=== PATIENT | female | born 1965 | race Caucasian/White ===

== ENCOUNTER 2017-07-07 02:21 | Emergency (ER) | payer BC ==
[2017-07-07] MEDS: ACETAMINOPHEN 325 MG TAB PO (03:46)
[2017-07-07] MEDS: IBUPROFEN 600 MG TAB PO (03:46)
[2017-07-07] MEDS: GUAIFENESIN/DM 5ML CUP PO (03:57)
== END 2017-07-07 04:42 | disposition home or self-care (01) ==
LOC: FTE 02:21
DX: J10.1 Influenza due to other identified influenza virus with other respiratory manifestations (principal); Z85.3 Personal history of malignant neoplasm of breast
CPT/HCPCS: 71045; 87400; 99284-25

== ENCOUNTER → 2017-07-18 | Outpatient (CLI) | payer BC | END | disposition home or self-care (01) | LOC: LAB 15:03 | DX: N39.0 Urinary tract infection, site not specified (principal) | CPT/HCPCS: 87086 ==

== ENCOUNTER → 2017-07-19 | Outpatient (CLI) | payer BC | END | disposition home or self-care (01) | LOC: U/S 12:18 | DX: N83.209 Unspecified ovarian cyst, unspecified side (principal); K80.20 Calculus of gallbladder without cholecystitis without obstruction | CPT/HCPCS: 76700; 76830; 76856 ==

== ENCOUNTER 2017-08-03 09:42 | Day surgery (SDC) | payer BC ==
[~2017-08-03 09:42] MED LIST: METOCLOPRAMIDE 10 MG INJ; METOPROLOL 5 MG INJ
[2017-08-03] MEDS: ROPIVACAINE 0.5 % 30 ML VIAL (11:49)
[2017-08-03] MEDS ORDERED: MIDAZOLAM 1 MG/ML 2 ML INJ (12:39)
[2017-08-03] MEDS: POLYMYXIN/BACITRACIN 1L IRRIG (12:40)
[2017-08-03] MEDS ORDERED: morphine 2 MG INJ IV (13:00)
[2017-08-03] MEDS ORDERED: PHENYLephrine (100 MCG/ML) 5ML SYG (13:38)
[2017-08-03] MEDS ORDERED: morphine 10 MG INJ (15:08)
[2017-08-03] MEDS ORDERED: ONDANSETRON 4 MG INJ (16:30)
[2017-08-03] MEDS ORDERED: METOCLOPRAMIDE 10 MG INJ (16:30)
[2017-08-03] MEDS: NEOMYC/POLYMYX/BACIT 30 GM OINT (16:32)
[2017-08-03] MEDS ORDERED: CEFAZOLIN 1 GM INJ (16:33)
[2017-08-03] MEDS ORDERED: ROCURONIUM 50 MG INJ (16:33)
[2017-08-03] MEDS ORDERED: PROPOFOL 20 ML (16:33)
[2017-08-03] MEDS ORDERED: LIDOCAINE 2% (SDV) 5 ML INJ (16:33)
[2017-08-03] MEDS ORDERED: FENTAnyl 50 MCG/ML VIAL IV (17:00)
[2017-08-03] MEDS ORDERED: HYDROmorphONE (0.2 MG/ML) 10ML SYG IV (17:00)
[2017-08-03] MEDS ORDERED: DIPHENHYDRAMINE 50 MG INJ IV (17:00)
[2017-08-03] MEDS ORDERED: MEPERIDINE 25 MG INJ IV (17:00)
[2017-08-03] MEDS ORDERED: LABETALOL HCL 20MG INJ IV (17:00)
[2017-08-03] MEDS: HYDROmorphONE (0.2 MG/ML) 10ML SYG IV ×2 (17:23→18:09)
[2017-08-03] MEDS: ONDANSETRON 4 MG INJ IV (17:28)
[2017-08-03] MEDS: HYDROCODONE/APAP (5/325) TAB PO (18:00)
== END 2017-08-03 20:08 | disposition home or self-care (01) ==
LOC: SDS 09:42
DX: M20.21 Hallux rigidus, right foot (principal); M20.11 Hallux valgus (acquired), right foot; M20.41 Other hammer toe(s) (acquired), right foot
CPT/HCPCS: 28285; 73630; 82306

== ENCOUNTER → 2018-01-11 | Outpatient (CLI) | payer BC ==
[2018-01-11 17:05] LABS: ADD MAN DIFF? NO
[2018-01-11 17:17] LABS: BASOPHILS % 0.3 % (0.0-2.0); EOSINOPHILS # 0.2 10^3/ul (0.0-0.5); EOSINOPHILS % 1.7 % (0.0-7.0); HEMATOCRIT 39.1 % (37.0-47.0); HEMOGLOBIN 12.6 g/dl (12.0-16.0); LYMPHOCYTES # 3.2 10^3/ul (0.8-2.9); LYMPHOCYTES % 32.5 % (15.0-51.0); MEAN CORPUSCULAR HEMOGLOBIN 28.1 pg (29.0-33.0); MEAN CORPUSCULAR HGB CONC 32.2 g/dl (32.0-37.0); MEAN CORPUSCULAR VOLUME 87.3 fl (82.0-101.0); MEAN PLATELET VOLUME 10.4 fl (7.4-10.4); MONOCYTE # 0.4 10^3/ul (0.3-0.9); MONOCYTES % 4.1 % (0.0-11.0); NEUTROPHIL # 6.1 10^3/ul (1.6-7.5); NEUTROPHILS % 61.2 % (39.0-77.0); PLATELET COUNT 244 10^3/UL (140-415); RED BLOOD COUNT 4.48 10^6/ul (4.20-5.40); RED CELL DISTRIBUTION WIDTH 13.9 % (11.5-14.5)
[2018-01-11 17:17] LABS: WHITE BLOOD COUNT 9.9 10^3/ul (4.8-10.8)
[2018-01-11 17:44] LABS: ANION GAP 11 (8-16); BLOOD UREA NITROGEN 13 mg/dl (7-20); CALCIUM 9.5 mg/dl (8.4-10.2); CARBON DIOXIDE 30 mmol/L (21-31); CHLORIDE 104 mmol/L (97-110); CREATININE 0.77 mg/dl (0.44-1.00); GLUCOSE 124 mg/dl (70-220); POTASSIUM 4.2 mmol/L (3.5-5.1); SODIUM 141 mmol/L (135-144)
[2018-01-11 17:51] LABS: INR 0.96; PROTIME 12.9 Sec (11.9-14.9)
[2018-01-11 17:52] LABS: PARTIAL THROMBOPLASTIN TIME 29.8 Sec (25.0-35.0)
== END | disposition home or self-care (01) ==
LOC: LAB 15:44
DX: J20.9 Acute bronchitis, unspecified (principal)
CPT/HCPCS: 71046; 80048; 85025; 85610; 85730; 93005

== ENCOUNTER 2018-01-19 05:27 | Day surgery (SDC) | payer BC ==
[2018-01-19] MEDS: LACTATED RINGER'S 1,000 ML IV (06:20)
[2018-01-19] MEDS ORDERED: BUPIVACAINE 0.25%/EPI (SDV) 30 ML INJ (06:53)
[2018-01-19] MEDS ORDERED: ROPIVACAINE 0.5 % 30 ML VIAL ×2 (06:53→07:59)
[2018-01-19] MEDS ORDERED: EPHEDrine SULFATE 50 MG/5 ML SYG (07:00)
[2018-01-19] MEDS ORDERED: PROPOFOL 20 ML (07:43)
[2018-01-19] MEDS ORDERED: LIDOCAINE 2% (SDV) 5 ML INJ (07:43)
[2018-01-19] MEDS ORDERED: MIDAZOLAM 1 MG/ML 2 ML INJ (07:44)
[2018-01-19] MEDS ORDERED: FENTAnyl 50 MCG/ML VIAL (07:44)
[2018-01-19] MEDS ORDERED: FAMOTIDINE 20 MG INJ (07:54)
[2018-01-19] MEDS ORDERED: ONDANSETRON 4 MG INJ (07:54)
[2018-01-19] MEDS ORDERED: DEXAMETHASONE 4 MG/ML 1 ML INJ (07:54)
[2018-01-19] MEDS ORDERED: CEFAZOLIN 1 GM INJ (07:58)
[2018-01-19] MEDS ORDERED: MEPERIDINE 25 MG INJ IV (08:30)
[2018-01-19] MEDS ORDERED: HYDROmorphONE 1 MG/5 ML IV SYRINGE IV ×2 (08:30)
[2018-01-19] MEDS ORDERED: ONDANSETRON 4 MG INJ IV (08:30)
[2018-01-19] MEDS ORDERED: FENTAnyl 50 MCG/ML VIAL IV ×3 (08:30)
[2018-01-19] MEDS ORDERED: DIPHENHYDRAMINE 50 MG INJ IV (08:30)
[2018-01-19] MEDS: NEOMYC/POLYMYX/BACIT 30 GM OINT (08:57)
[2018-01-19] MEDS: POLYMYXIN/BACITRACIN 1L IRRIG (08:57)
[2018-01-19] MEDS ORDERED: PHENYLephrine (100 MCG/ML) 5ML SYG (11:21)
[2018-01-19] MEDS: PROCHLORPERAZINE 10 MG INJ IV (12:16)
[2018-01-19] MEDS: HYDROmorphONE 1 MG/5 ML IV SYRINGE IV ×2 (12:19→13:12)
[2018-01-19] MEDS ORDERED: morphine 2 MG INJ IV (12:30)
== END 2018-01-19 14:07 | disposition home or self-care (01) ==
LOC: SDS 05:27
DX: M20.22 Hallux rigidus, left foot (principal); M20.42 Other hammer toe(s) (acquired), left foot
CPT/HCPCS: 28285; 73630-LT; 84703

== ENCOUNTER → 2018-04-03 | Outpatient (CLI) | payer BC ==
[~2018-04-03] MED LIST changes: +IOHEXOL 300MG/ML 150 ML BTL; -METOCLOPRAMIDE 10 MG INJ; -METOPROLOL 5 MG INJ; +SOD CHLORIDE 0.9% 100 ML
[2018-04-03 12:03] LABS: ADD MAN DIFF? NO
[2018-04-03 12:16] LABS: WHITE BLOOD COUNT 8.3 10^3/ul (4.8-10.8)
[2018-04-03 12:16] LABS: BASOPHILS % 0.5 % (0.0-2.0); EOSINOPHILS # 0.1 10^3/ul (0.0-0.5); EOSINOPHILS % 1.6 % (0.0-7.0); HEMATOCRIT 40.1 % (37.0-47.0); HEMOGLOBIN 12.7 g/dl (12.0-16.0); LYMPHOCYTES # 2.7 10^3/ul (0.8-2.9); LYMPHOCYTES % 32.5 % (15.0-51.0); MEAN CORPUSCULAR HEMOGLOBIN 27.5 pg (29.0-33.0); MEAN CORPUSCULAR HGB CONC 31.7 g/dl (32.0-37.0); MEAN PLATELET VOLUME 10.5 fl (7.4-10.4); MONOCYTE # 0.5 10^3/ul (0.3-0.9); MONOCYTES % 5.5 % (0.0-11.0); NEUTROPHILS % 59.5 % (39.0-77.0); PLATELET COUNT 255 10^3/UL (140-415); RED BLOOD COUNT 4.61 10^6/ul (4.20-5.40); RED CELL DISTRIBUTION WIDTH 14.4 % (11.5-14.5)
[2018-04-03 12:42] LABS: ALANINE AMINOTRANSFERASE 28 IU/L (13-69); ALBUMIN 4.5 g/dl (3.3-4.9); ALBUMIN/GLOBULIN RATIO 1.36; ALKALINE PHOSPHATASE 59 IU/L (42-121); ANION GAP 9 (5-13); ASPARTATE AMINO TRANSFERASE 25 IU/L (15-46); BILIRUBIN,INDIRECT 0.3 mg/dl (0-1.1); BILIRUBIN,TOTAL 0.3 mg/dl (0.2-1.3); BLOOD UREA NITROGEN 17 mg/dl (7-20); CALCIUM 9.6 mg/dl (8.4-10.2); CARBON DIOXIDE 26 mmol/L (21-31); CHLORIDE 107 mmol/L (97-110); CREATININE 0.73 mg/dl (0.44-1.00); Estimated GFR > 60 mL/min (>60); GLUCOSE 105 mg/dl (70-220); POTASSIUM 4.6 mmol/L (3.5-5.1); SODIUM 142 mmol/L (135-144); TOTAL PROTEIN 7.8 g/dl (6.1-8.1)
[2018-04-05 00:27] LABS: CANCER ANTIGEN 15-3 11 U/mL (<32)
== END | disposition home or self-care (01) ==
LOC: LAB 11:51
DX: C50.411 Malignant neoplasm of upper-outer quadrant of right female breast (principal)
CPT/HCPCS: 71260; 80053; 85025; 86300

== ENCOUNTER → 2018-06-12 | Outpatient (CLI) | payer BC | END | disposition home or self-care (01) | LOC: VAS 17:11 | DX: C50.411 Malignant neoplasm of upper-outer quadrant of right female breast (principal) | CPT/HCPCS: 93971 ==

== ENCOUNTER 2018-07-06 21:36 | Emergency (ER) | payer BC ==
[2018-07-06 23:06] LABS: URINE BLOOD (Dip) POC Trace-lysed (NEGATIVE); URINE GLUCOSE (Dip) POC Negative (NEGATIVE); URINE KETONES (Dip) POC Trace (NEGATIVE); URINE LEUKOCYTE EST (Dip) POC Negative (NEGATIVE); URINE NITRITE (Dip) POC Negative (NEGATIVE); URINE TOTAL PROTEIN POC Trace (NEGATIVE)
[2018-07-06 23:06] LABS: URINE PH (Dip) POC 5.5 (5.0-8.5)
[2018-07-06] MEDS: HYDROCODONE/APAP (5/325) TAB PO (23:10)
[2018-07-06] MEDS: BACLOFEN 10 MG TAB PO (23:16)
== END 2018-07-07 01:04 | disposition home or self-care (01) ==
LOC: FTE 07-07 01:04
DX: R51 Headache (principal); M62.838 Other muscle spasm; Z85.3 Personal history of malignant neoplasm of breast
CPT/HCPCS: 70450; 81003; 99284-25

== ENCOUNTER → 2018-07-25 | Outpatient (CLI) | payer BC ==
[2018-07-25 12:54] LABS: ADD MAN DIFF? NO
[2018-07-25 12:56] LABS: WHITE BLOOD COUNT 8.3 10^3/ul (4.8-10.8)
[2018-07-25 12:56] LABS: BASOPHIL # 0.1 10^3/ul (0.0-0.1); BASOPHILS % 0.6 % (0.0-2.0); EOSINOPHILS # 0.1 10^3/ul (0.0-0.5); EOSINOPHILS % 1.6 % (0.0-7.0); HEMATOCRIT 38.8 % (37.0-47.0); HEMOGLOBIN 12.6 g/dl (12.0-16.0); LYMPHOCYTES # 2.9 10^3/ul (0.8-2.9); LYMPHOCYTES % 34.9 % (15.0-51.0); MEAN CORPUSCULAR HEMOGLOBIN 27.8 pg (29.0-33.0); MEAN CORPUSCULAR HGB CONC 32.5 g/dl (32.0-37.0); MEAN CORPUSCULAR VOLUME 85.7 fl (82.0-101.0); MEAN PLATELET VOLUME 10.3 fl (7.4-10.4); MONOCYTE # 0.4 10^3/ul (0.3-0.9); NEUTROPHIL # 4.8 10^3/ul (1.6-7.5); NEUTROPHILS % 57.5 % (39.0-77.0); PLATELET COUNT 247 10^3/UL (140-415); RED BLOOD COUNT 4.53 10^6/ul (4.20-5.40)
[2018-07-25 13:13] LABS: ALANINE AMINOTRANSFERASE 23 IU/L (13-69); ALBUMIN 4.6 g/dl (3.3-4.9); ALBUMIN/GLOBULIN RATIO 1.27; ALKALINE PHOSPHATASE 71 IU/L (42-121); ANION GAP 13 (5-13); ASPARTATE AMINO TRANSFERASE 27 IU/L (15-46); BILIRUBIN,INDIRECT 0.3 mg/dl (0-1.1); BILIRUBIN,TOTAL 0.3 mg/dl (0.2-1.3); BLOOD UREA NITROGEN 13 mg/dl (7-20); CALCIUM 9.8 mg/dl (8.4-10.2); CARBON DIOXIDE 26 mmol/L (21-31); CHLORIDE 103 mmol/L (97-110); CHOL/HDL RATIO 6.8 RATIO; CHOLESTEROL 282 mg/dl (100-200); CREATININE 0.74 mg/dl (0.44-1.00); Estimated GFR > 60 mL/min (>60); GLUCOSE 110 mg/dl (70-220); HDL CHOLESTEROL 41 mg/dl (37-92); LDL CHOLESTEROL,CALCULATED 192 mg/dl; POTASSIUM 4.4 mmol/L (3.5-5.1); SODIUM 142 mmol/L (135-144); TOTAL PROTEIN 8.2 g/dl (6.1-8.1); TRIGLYCERIDES 246 mg/dl (0-149)
[2018-07-25 13:30] LABS: T4 (THYROXINE) 9.4 ug/dl (5.5-11.0)
[2018-07-25 14:02] LABS: ERYTHROCYTE SEDIMENTATION RATE 30 mm/Hr (0-30)
[2018-07-25 14:42] LABS: CANCER ANTIGEN 125 7.5 U/ml (0.0-35.0); CARCINOEMBRYONIC ANTIGEN 0.4 ng/ml (0.0-5.0)
[2018-07-25 14:55] LABS: HEMOGLOBIN A1C 5.7 % (0-5.9)
[2018-07-26 12:38] LABS: CA27.29 18 U/mL (<38)
[2018-07-26 21:57] LABS: ANA SCREEN POSITIVE (NEGATIVE)
[2018-07-27 16:27] LABS: ANA PATTERN NUCLEOLAR; ANA TITER 1:40 titer
== END | disposition home or self-care (01) ==
LOC: LAB 12:31
DX: M17.12 Unilateral primary osteoarthritis, left knee (principal); Z79.82 Long term (current) use of aspirin
CPT/HCPCS: 20610; 80053; 80061; 82378; 83036; 84436; 84443; 85025; 85651; 86038; 86300; 86304

== ENCOUNTER 2018-12-13 09:23 | Day surgery (SDC) | payer BC ==
[2018-12-13] MEDS ORDERED: PROPOFOL 200 MG INJ (11:07)
[2018-12-13] MEDS ORDERED: MIDAZOLAM 1 MG/ML 2 ML INJ (11:09)
[2018-12-13] MEDS ORDERED: LIDOCAINE 2% (SDV) 5 ML INJ (11:09)
[2018-12-13] MEDS ORDERED: ETOMIDATE 20 MG INJ (11:09)
[2018-12-13] MEDS ORDERED: PROPOFOL 20 ML (11:09)
[2018-12-13] MEDS ORDERED: FENTAnyl 50 MCG/ML VIAL (11:09)
[2018-12-13] MEDS ORDERED: LIDOCAINE 4% SOLUTION 50 ML BTL (11:10)
== END 2018-12-13 16:13 | disposition home or self-care (01) ==
LOC: GIL 09:23
DX: Z12.11 Encounter for screening for malignant neoplasm of colon (principal); K64.8 Other hemorrhoids; K29.30 Chronic superficial gastritis without bleeding
CPT/HCPCS: 43239; 88305; 88312